=== PATIENT | female | born 1975 | race Asian ===

== ENCOUNTER 2017-06-01 22:54 | Emergency (ER) | payer BC ==
[~2017-06-01] VITALS: Ht 162.6 cm; Wt 90.0 kg
[~2017-06-01 22:54] MED LIST: MOTRIN 600600 MG/TAB PO; PERCOCET 325 MG1 TA2 PO; PRENATAL VITAMI1 TA3 PO; PRENATAL VITAMI1 TAB; PROCARDIA XL 3030 MG PO
[2017-06-01 22:57] VITALS: BP 194/81; TEMP 98.5
[2017-06-02 00:29] VITALS: PULSE 75
== END 2017-06-02 00:29 | disposition home or self-care (01) ==
LOC: COL.ER 22:54
DX: J02.9 Acute pharyngitis, unspecified (principal)